=== PATIENT | female | born 1985 | race Caucasian/White ===

== ENCOUNTER 2018-02-04 16:52 | Emergency (ER) | payer SELFPAY ==
[2018-02-04 17:05] VITALS: BMI 24.2
[2018-02-04 17:08] VITALS: RESP 18; TEMP 98.3; O2SAT 99
[2018-02-04] MEDS: Sodium Chloride 0.9% 1,000 ML IV STA ×2 (17:58→18:00)
[2018-02-04 18:16] LABS: BASO # 0.02 K/mm3 (0.0-2.0); BASO % 0.2 % (0.0-3.0); EOS # 0.3 (0.0-0.7); GRAN # 5.68 (1.4-6.5); GRAN % 68.2 % (50.0-68.0); HEMOGLOBIN 12.7 g/dL (12.0-16.0); LYMPH # 1.9 (1.2-3.4); LYMPH % 22.7 % (22.0-35.0); MEAN CELL VOLUME 84.4 fl (80.0-105.0); MEAN CORPUSCULAR HGB CONC 33.2 g/dl (31.0-37.0); MEAN PLATELET VOLUME 10.1 fl (7.0-11.0); MONO # 0.5 (0.1-0.6); MONO % 5.9 % (1.0-6.0); RBC 4.54 10^6/uL (3.5-6.1); RED CELL DISTRIBUTION WIDTH 13.5 % (11.5-14.5); WHITE BLOOD COUNT 8.3 10^3/ul (4.5-11.0)
[2018-02-04 18:19] LABS: HCG,QUALITATIVE URINE POSITIVE (NEGATIVE)
[2018-02-04 18:21] LABS: URINE BILIRUBIN NEGATIVE (NEGATIVE); URINE BLOOD LARGE (NEGATIVE); URINE GLUCOSE (UA) NEGATIVE (NEGATIVE); URINE LEUKOCYTE ESTERASE NEGATIVE Leu/uL (NEGATIVE); URINE PROTEIN 30 mg/dL (<30 mg/dL); URINE UROBILINOGEN 0.2 E.U./dL (<1 E.U./dL)
[2018-02-04 18:22] LABS: URINE APPEARANCE TURBID (CLEAR); URINE COLOR YELLOW (YELLOW)
[2018-02-04 18:23] LABS: INR 1.12; PROTHROMBIN TIME 12.8 SECONDS (9.4-12.5); URINE WBC 0 - 2 /hpf (0-6)
[2018-02-04 18:24] LABS: URINE BACTERIA FEW (NEG)
[2018-02-04 18:28] LABS: ALB/GLOB RATIO 1.4 (1.1-1.8); ALBUMIN 4.4 g/dL (3.0-4.8); ALT/SGPT 17 U/L (7-56); AST/SGOT 37 U/L (14-36); BLOOD UREA NITROGEN 9 mg/dL (7-21); CALCIUM 9.6 mg/dL (8.4-10.5); GFR NON-AFRICAN AMERICAN > 60
[2018-02-04] MEDS ORDERED: Potassium Chloride 20 mEq ER Tab PO STA (18:34)
--- NOTE | 2018-02-04 19:11 | ED PDOC ---
Arrival/HPI - General Chief Complaint: Abdominal Pain Time Seen by Provider: 02/04/18 17:19 Historian: Patient - History of Present Illness Narrative History of Present Illness (Text): 02/04/18 18:57 32yo female who present with complaint of lower abdominal pain x 2weeks and vaginal discharge. States she had a brownish vaginal discharge 10days ago and then started having light vaginal bleeding today. She states she is currently 9weeks . Denies fever, chills, nausea, vomiting, diarrhea, chest pain, SOB, any other complaint. Past Medical History - Provider Review Nursing Documentation Reviewed: Yes - Infectious Disease Hx of Infectious Diseases: None - Psychiatric Hx Substance Use: No Family/Social History - Physician Review Nursing Documentation Reviewed: Yes Family/Social History: Unknown Family HX Smoking Status: Never Smoked Hx Alcohol Use: No Hx Substance Use: No Allergies/Home Meds Allergies/Adverse Reactions: Allergies epidural Allergy (Uncoded 02/04/18 17:05) SHORTNESS OF BREATH Home Medications: Home Meds Medication Instructions Recorded Confirmed Folic Acid 1 tab PO DAILY 02/04/18 02/04/18 Review of Systems - Physician Review All systems were reviewed & negative as marked: Yes - Review of Systems Constitutional: Normal Eyes: Normal ENT: Normal Respiratory: Normal Cardiovascular: Normal Gastrointestinal: Abdominal Pain. absent: Constipation, Diarrhea, Nausea, V omiting, Hematemesis Genitourinary Female: Vaginal Bleeding Musculoskeletal: Normal Skin: Normal Neurological: Normal Endocrine: Normal Hemo/Lymphatic: Normal Psychiatric: Normal Physical Exam Vital Signs Reviewed: Yes Vital Signs Temp Pulse Resp BP Pulse Ox 02/04/18 17:08 98.3 F 94 H 18 111/61 99 Temperature: Afebrile Blood Pressure: Normal Pulse: Regular Respiratory Rate: Normal Appearance: Positive for: Well-Appearing, Non-Toxic, Comfortable Pain Distress: None Mental Status: Positive for: Alert and Oriented X 3 - Systems Exam Head: Present: Atraumatic, Normocephalic Pupils: Present: PERRL Extroacular Muscles: Present: EOMI Conjunctiva: Present: Normal Mouth: Present: Moist Mucous Membranes Neck: Present: Normal Range of Motion Respiratory/Chest: Present: Clear to Auscultation, Good Air Exchange. No: Respiratory Distress, Accessory Muscle Use Cardiovascular: Present: Regular Rate and Rhythm, Normal S1, S2. No: Murmurs Abdomen: No: Tenderness, Distention, Peritoneal Signs Genitourinary/Pelvic Exam: Present: Cervical os Closed, Other (moderate blood pooling in vagina) Back: Present: Normal Inspection Upper Extremity: Present: Normal Inspection. No: Cyanosis, Edema Lower Extremity: Present: Normal Inspection. No: Edema Neurological: Present: GCS=15, CN II-XII Intact, Speech Normal Skin: Present: Warm, Dry, Normal Color. No: Rashes Psychiatric: Present: Alert, Oriented x 3, Normal Insight, Normal Concentration Medical Decision Making - Lab Interpretations Lab Results: 02/04/18 17:55 02/04/18 17:55 Lab Results 02/04/18 17:55: Sodium 138, Potassium 3.3 L, Chloride 101, Carbon Dioxide 28, Anion Gap 12, BUN 9, Creatinine 0.5 L, Est GFR ( Amer) > 60, Est GFR (Non-Af Amer) > 60, Random Glucose 104, Calcium 9.6, Total Bilirubin 1.2, AST 37 H, ALT 17, Alkaline Phosphatase 56, Total Protein 7.6, Albumin 4.4, Globulin 3.2, Albumin/Globulin Ratio 1.4 02/04/18 17:55: Urine Color Yellow, Urine Appearance Turbid, Urine pH 6.0, Ur Specific [place] >= 1.030, Urine Protein 30 H, Urine Glucose (UA) Negative, Urine Ketones Trace H, Urine Blood Large H, Urine Nitrate Negative, Urine Bilirubin Negative, Urine Urobilinogen 0.2, Ur Leukocyte Esterase Negative, Urine RBC 1 - 3, Urine WBC 0 - 2, Ur Epithelial Cells 10 - 12, Urine Bacteria Few, Urine HCG, Qual Positive 02/04/18 17:55: PT 12.8 H, INR 1.12, APTT 33.0 02/04/18 17:55: WBC 8.3, RBC 4.54, Hgb 12.7, Hct 38.3, MCV 84.4, MCH 28.0, MCHC 33.2, RDW 13.5, Plt Count 270, MPV 10.1, Gran % 68.2 H, Lymph % (Auto) 22.7, [place] % (Auto) 5.9, Eos % (Auto) 3.0, Baso % (Auto) 0.2, Gran # 5.68, Lymph # (Auto) 1.9, [place] # (Auto) 0.5, Eos # (Auto) 0.3, Baso # (Auto) 0.02 - RAD Interpretation Radiology Orders: 02/04/18 17:19 OB TRANSVAGINAL [US] Stat - Medication Orders Current Medication Orders: Discontinued Medications Sodium Chloride (Sodium Chloride 0.9%) 1,000 mls @ 999 mls/hr IV .Q1H1M STA Stop: 02/04/18 18:20 Last Admin: 02/04/18 18:00 Dose: 999 mls/hr eMAR Start Stop Document 02/04/18 18:00 EQ (Rec: 02/04/18 18:15 EQ [id number]) Intravenous Solution Start Date 02/04/18 Start Time 18:15 Potassium Chloride (K-Dur 20 Meq Er Tab) 20 meq PO STAT STA Stop: 02/04/18 18:35 Disposition/Present on Arrival - Present on Arrival Any Indicators Present on Arrival: No History of DVT/PE: No History of Uncontrolled Diabetes: No Urinary Catheter: No History of Decub. Ulcer: No History Surgical Site Infection Following: None - Disposition Have Diagnosis and Disposition been Completed?: Yes Diagnosis: Threatened Disposition: HOME/ ROUTINE Disposition Time: 20:00 Patient Plan: Discharge Condition: STABLE Discharge Instructions (ExitCare): Threatened Miscarriage (DC) Additional Instructions: Follow up with your OB in 48hrs or return to ED for a repeat beta/Us Drink plenty of fluid and rest Referrals: PCP,NO [Primary Care Provider] - Follow up with primary Leena Ansari MD [Staff Provider] - Follow up with primary [facility] [place] [Outside] - Follow up with primary Forms: [employer] (Swazi)
[2018-02-04 19:56] VITALS: BP 100/52; PULSE 74
--- NOTE | 2018-02-05 12:58 | US ---
Date of service: 02/04/2018 PROCEDURE: OB Pelvic Ultrasound HISTORY: /bleeding COMPARISON: None available. TECHNIQUE: Transvaginal pelvic ultrasound was performed. FINDINGS: UTERUS: Single intrauterine gestation. CRL measures 0.72 cm equivalent to 6 weeks and 4 days of gestational age. Gestational sac diameter measures 1.68 cm equivalent to 6 weeks and 0 day of gestational age. cardiac activity could not be documented on the current examination. A large yolk sac is identified. age (Ultrasound estimated): 6 weeks and 2 days Date of delivery (Ultrasound estimated) : 09/28/2018 Jovanna-gestational hemorrhage: There is a 1.0 x 0.6 x 0.9 cm subchorionic hemorrhage. Measures 8.5 x 4.5 x 6.5 cm. Normal in size and appearance. No fibroid or other mass lesion seen. CERVIX: Long and closed. No cervical abnormality seen. RIGHT OVARY: Measures 3.9 x 1.4 x 1.7 cm. No mass. Normal flow. LEFT OVARY: Measures 3.1 x 1.7 x 1.4 cm. No mass. Normal flow. FREE FLUID: None. OTHER FINDINGS: None. IMPRESSION: Single intrauterine gestational sac. cardiac activity is not documented on the current examination. Findings could be related to demise however this finding cannot be determined with certainty at the current gestational age. Clinical follow-up and follow-up with with serial beta HCG levels and transvaginal ultrasound is advised. Important findings were discussed with the ER attending on 02/05/2018.
== END 2018-02-04 20:20 | disposition home or self-care (01) ==
LOC: ED 16:52
DX: O20.0 Threatened abortion (principal); Z3A.01 Less than 8 weeks gestation of pregnancy
CPT/HCPCS: 76817; 80053; 81001; 84702; 84703; 85025; 85610; 85730; 86850; 86900; 87491; 87591; 99283; J7030

== ENCOUNTER 2018-02-06 19:08 | Emergency (ER) | payer MEDICAID ==
[2018-02-06 19:44] VITALS: RESP 17; TEMP 98; BMI 23.8
[2018-02-06 20:32] LABS: PH,URINE 8.5 (4.7-8.0); URINE BILIRUBIN NEGATIVE (NEGATIVE); URINE BLOOD LARGE (NEGATIVE); URINE GLUCOSE (UA) NEGATIVE (NEGATIVE); URINE LEUKOCYTE ESTERASE NEGATIVE Leu/uL (NEGATIVE); URINE PROTEIN 30 mg/dL (<30 mg/dL)
[2018-02-06 20:34] LABS: URINE APPEARANCE SL CLOUDY (CLEAR); URINE COLOR YELLOW (YELLOW)
[2018-02-06 20:46] LABS: URINE BACTERIA MOD (NEG); URINE RBC TNTC /hpf (0-2)
--- NOTE | 2018-02-06 20:58 | ED PDOC ---
Arrival/HPI - General Historian: Patient - History of Present Illness Narrative History of Present Illness (Text): 02/06/18 20:54 32yo female with no pmhx who present to ED for a repeat beta. she was seen here on 02/04/18 for vaginal bleeding and was . She was advised to f/u with OB or return to ED for a repeat beta. She states she had heavy vaginal bleeding yesterday with clots, but the bleeding improved today. Reports mild lower abdominal cramping and lower back pain, which she have had for few days now. she denies nausea, vomiting, fever, chills, urinary symptoms, chest pain, dizziness, any other complaint. <Silvio Ramires - Last Filed: 02/07/18 01:22> <Damaso Aldana - Last Filed: 02/10/18 00:17> - General Chief Complaint: Medical Clearance Time Seen by Provider: 02/06/18 19:28 Past Medical History - Provider Review Nursing Documentation Reviewed: Yes - Infectious Disease Hx of Infectious Diseases: None - Cardiac Hx Cardiac Disorders: No - Pulmonary Hx Respiratory Disorders: No - Neurological Hx Neurological Disorder: No - HEENT Hx HEENT Disorder: No - Renal Hx Renal Disorder: No - Endocrine/Metabolic Hx Endocrine Disorders: No - Hematological/Oncological Hx Blood Disorders: No - Integumentary Hx Dermatological Disorder: No - Musculoskeletal/Rheumatological Hx Musculoskeletal Disorders: No - Gastrointestinal Hx Gastrointestinal Disorders: No - Genitourinary/Gynecological Hx Genitourinary Disorders: No - Psychiatric Hx Psychophysiologic Disorder: No Hx Substance Use: No <Silvio Ramires A - Last Filed: 02/07/18 01:22> Family/Social History - Physician Review Nursing Documentation Reviewed: Yes Family/Social History: Unknown Family HX Smoking Status: Never Smoked Hx Alcohol Use: No Hx Substance Use: No <Silvio Ramires A - Last Filed: 02/07/18 01:22> Allergies/Home Meds <Silvio Ramires - Last Filed: 02/07/18 01:22> <Damaso Aldana - Last Filed: 02/10/18 00:17> Allergies/Adverse Reactions: Allergies epidural Allergy (Uncoded 02/04/18 17:05) SHORTNESS OF BREATH Home Medications: Home Meds Medication Instructions Recorded Confirmed Folic Acid 1 tab PO DAILY 02/04/18 02/04/18 Review of Systems - Physician Review All systems were reviewed & negative as marked: Yes - Review of Systems Constitutional: Normal Eyes: Normal ENT: Normal Respiratory: Normal Cardiovascular: Normal Gastrointestinal: Abdominal Pain. absent: Constipation, Diarrhea, Nausea, Vomiting, Hematochezia, Hematemesis Genitourinary Female: Normal Musculoskeletal: Normal Skin: Normal Neurological: Normal Endocrine: Normal Hemo/Lymphatic: Normal Psychiatric: Normal <Diru,Happiness A - Last Filed: 02/07/18 01:22> Physical Exam Vital Signs Reviewed: Yes Vital Signs Temp Pulse Resp BP Pulse Ox 02/06/18 19:36 98.0 F 80 17 122/71 97 Temperature: Afebrile Blood Pressure: Normal Pulse: Regular Respiratory Rate: Normal Appearance: Positive for: Well-Appearing, Non-Toxic, Comfortable Pain Distress: None Mental Status: Positive for: Alert and Oriented X 3 - Systems Exam Head: Present: Atraumatic, Normocephalic Pupils: Present: PERRL Extroacular Muscles: Present: EOMI Conjunctiva: Present: Normal Mouth: Present: Moist Mucous Membranes Neck: Present: Normal Range of Motion Respiratory/Chest: Present: Clear to Auscultation, Good Air Exchange. No: Respiratory Distress, Accessory Muscle Use Cardiovascular: Present: Regular Rate and Rhythm, Normal S1, S2. No: Murmurs Abdomen: Present: Normal Bowel Sounds, Other (soft). No: Tenderness, Distention, Peritoneal Signs, Rebound, Guarding, McBurney's Point Tender, Rovsing's Sign Present Back: Present: Normal Inspection Upper Extremity: Present: Normal Inspection. No: Cyanosis, Edema Lower Extremity: Present: Normal Inspection. No: Edema Neurological: Present: GCS=15, CN II-XII Intact, Speech Normal Skin: Present: Warm, Dry, Normal Color. No: Rashes Psychiatric: Present: Alert, Oriented x 3, Normal Insight, Normal Concentration <Diru,Happiness A - Last Filed: 02/07/18 01:22> Vital Signs Temp Pulse Resp BP Pulse Ox 02/06/18 21:09 98.0 F 81 17 118/62 99 02/06/18 19:36 98.0 F 80 17 122/71 97 <Damaso Aldana - Last Filed: 02/10/18 00:17> Medical Decision Making ED Course and Treatment: 02/07/18 01:22 PT presented to ED for a repeat beta. She was not in any distress in ED Beta was 1612.00 compare to her beta on 02/04/18 of 96076.00 Result was DW the pt and she was advised to f/u with OB for serial beta. copies of lab result was given to the pt. - Lab Interpretations Lab Results: Lab Results 02/06/18 20:27: Urine Color Yellow, Urine Appearance Sl cloudy, Urine pH 8.5, Ur Specific [place] 1.010, Urine Protein 30 H, Urine Glucose (UA) Negative, Urine Ketones 15 H, Urine Blood Large H, Urine Nitrate Negative, Urine Bilirubin Negative, Urine Urobilinogen 1.0 H, Ur Leukocyte Esterase Negative, Urine RBC Tntc, Urine WBC 1 - 3, Ur Epithelial Cells 1 - 3, Urine Bacteria Mod 02/06/18 20:06: Beta HCG, Quant 1612.00 H <Silvio Ramires A - Last Filed: 02/07/18 01:22> - Lab Interpretations Lab Results: Lab Results 02/06/18 20:27: Urine Color Yellow, Urine Appearance Sl cloudy, Urine pH 8.5, Ur Specific [place] 1.010, Urine Protein 30 H, Urine Glucose (UA) Negative, Urine Ketones 15 H, Urine Blood Large H, Urine Nitrate Negative, Urine Bilirubin Negative, Urine Urobilinogen 1.0 H, Ur Leukocyte Esterase Negative, Urine RBC Tntc, Urine WBC 1 - 3, Ur Epithelial Cells 1 - 3, Urine Bacteria Mod 02/06/18 20:06: Beta HCG, Quant 1612.00 H <Damaso Aldana - Last Filed: 02/10/18 00:17> - PA / UPFITTER / Resident Statement / has reviewed & agrees with the documentation as recorded. <Damaso Aldana - Last Filed: 02/10/18 00:17> Disposition/Present on Arrival - Present on Arrival Any Indicators Present on Arrival: No History of DVT/PE: No History of Uncontrolled Diabetes: No Urinary Catheter: No History of Decub. Ulcer: No History Surgical Site Infection Following: None - Disposition Have Diagnosis and Disposition been Completed?: Yes Disposition Time: 20:55 Patient Plan: Discharge <Silvio Ramires - Last Filed: 02/07/18 01:22> <Damaso Aldana - Last Filed: 02/10/18 00:17> - Disposition Diagnosis: Spontaneous Disposition: HOME/ ROUTINE Condition: STABLE Discharge Instructions (ExitCare): Miscarriage, Dealing With Miscarriage Additional Instructions: Follow up with OB for serial beta quant Return to ED for any new or worsening symptoms Referrals: Daphne Talavera MD [Staff Provider] - [facility] [Outside] - Follow up with primary [facility], [place] [Outside] - Follow up with primary [facility] [Outside] - Follow up with primary Forms: [employer] (Danish)
[2018-02-06 21:33] VITALS: BP 118/62; PULSE 81; O2SAT 99
== END 2018-02-06 21:09 | disposition home or self-care (01) ==
LOC: ED 19:08
DX: O03.9 Complete or unspecified spontaneous abortion without complication (principal)